=== PATIENT | male | born 1945 | race Caucasian/White ===

== ENCOUNTER → 2017-09-04 12:08 | Outpatient (CLI) | payer OTHER, SELFPAY ==
--- NOTE | 2017-09-04 12:11 | DI.RAD.S_ITS ---
PROCEDURE: XR KNEE LT 3V INDICATIONS: left knee pain TECHNIQUE: 3 views of the knee were acquired. COMPARISON: [facility], , KNEE 3V LEFT, 05/06/2013, 11:01. FINDINGS: Bones: Mild interval worsening of degenerative knee joint osteoarthritis that has now become moderately severe at the medial compartment of the left knee. This is in reference to the comparison study from April 2013. No effusion or loose body seen. Mild medial facet patellofemoral joint osteoarthritis. Soft tissues: No joint effusion. No suspicious soft tissue calcifications. IMPRESSION: Worsening degenerative knee joint osteoarthritis now moderately severe the medial compartment of the left knee when compared to the prior study from 2013. Dictated by: Rodney Valdez M.D. on 09/04/2017 at 12:59 Approved by: Rodney Valdez M.D. on 09/04/2017 at 13:00
== END ==
PROVIDERS: PCP Family Medicine; Visit Provider Internal Medicine
DX: M17.12 Unilateral primary osteoarthritis, left knee (principal); M25.562 Pain in left knee; M25.561 Pain in right knee
CPT/HCPCS: 73562

== ENCOUNTER → 2018-06-03 13:08 | Outpatient (CLI) | payer OTHER, SELFPAY ==
--- NOTE | 2018-06-03 13:10 | DI.US.S_ITS ---
PROCEDURE: US ABD AORTA ANEURYSM SCREEN INDICATIONS: Former smoker TECHNIQUE: Real time scanning was performed of the aorta and iliac arteries, with image documentation. COMPARISON: None. FINDINGS: Aorta: Proximal aortic was obscured by bowel gas. Mid-aorta measures 2.1 cm. Distal aortic diameter is 2.0 cm. There appears to be aortic atherosclerosis. Iliac arteries: Right common iliac artery measures 1.7 cm. Left common iliac artery measures 1.7 cm. IMPRESSION: No evidence of abdominal aortic aneurysm. Dictated by: Ariel Simons M.D. on 06/03/2018 at 13:09 Approved by: Ariel Simons M.D. on 06/03/2018 at 13:13
== END ==
PROVIDERS: PCP Student in an Organized Health Care Education/Training Program; Visit Provider Student in an Organized Health Care Education/Training Program
DX: Z13.6 Encounter for screening for cardiovascular disorders (principal); Z87.891 Personal history of nicotine dependence
CPT/HCPCS: 76706

== ENCOUNTER → 2018-08-29 09:21 | Outpatient (CLI) | payer OTHER, SELFPAY ==
[2018-08-29 12:47] LABS: Blood Urea Nitrogen 19 mg/dL (9-20); Calcium 9.2 mg/dL (8.4-10.2); Carbon Dioxide 26 mmol/L (22-32); Chloride 103 mmol/L (98-107); Cholesterol 174 mg/dL (140-199); Estimated Glomerular Filt Rate > 60.0 mL/min (>60); Glucose 92 mg/dL (80-110); HDL Cholesterol 28 mg/dL (40-60); HEMOLYSIS < 15 (0-50); LDL Cholesterol Calculated 119 mg/dL (<100); Potassium 4.6 mmol/L (3.4-5.1); Sodium 138 mmol/L (137-145); Triglycerides 135 mg/dL (35-150)
[2018-08-29 14:49] LABS: Vitamin D 25 Hydroxy (D3) 32.9 ng/mL (30.0-100.0)
== END ==
PROVIDERS: PCP Student in an Organized Health Care Education/Training Program; Visit Provider Student in an Organized Health Care Education/Training Program
DX: E55.9 Vitamin D deficiency, unspecified (principal); I10 Essential (primary) hypertension; Z13.220 Encounter for screening for lipoid disorders
CPT/HCPCS: 36415; 80048; 80061; 82306

== ENCOUNTER 2018-12-06 08:32 | Emergency (ER) | payer OTHER, SELFPAY ==
[2018-12-06 08:54] VITALS: BP 146/72; PULSE 82; RESP 13; TEMP 36.4; O2SAT 98
--- NOTE | 2018-12-06 08:56 | DI.RAD.S_ITS ---
PROCEDURE: XR LUMBAR SPINE 2-3V INDICATIONS: pain TECHNIQUE: 3 views of the lumbar spine were acquired. COMPARISON: [facility], , L-SPINE 2-3 VIEWS, 05/06/2013, 11:01. FINDINGS: Bones: 5 znt-nak-nzutuiz vertebrae are present. There is normal bony alignment. No vertebral body compression fractures. No suspicious bony lesions. The bone mineralization appears to be mildly decreased. There is slight levoconvex curvature of the lumbar spine which may be slightly more prominent on the current study. Moderate multilevel degenerative changes of the lumbar spine are similar to the previous examination, but slightly more pronounced and better appreciated involving the lower lumbar facet joints. Intervertebral disc heights are relatively well-maintained. Anterior disc osteophyte complexes are present. Is grade 1 retrolisthesis of L2 on L3 and L3 on L4 by approximately 3 mm. Degenerative changes of the sacroiliac joints appear to be present. Soft tissues: Overlying bowel gas pattern is normal. A large amount of stool is seen within the colon. There is aortic atherosclerosis. No suspicious soft tissue calcifications. IMPRESSION: 1. No acute fractures of the lumbar spine are evident. 2. Moderate multilevel degenerative changes of the lumbar spine have progressed in the interim. 3. Moderate residual stool within the colon may represent constipation. Dictated by: Ariel Simons M.D. on 12/06/2018 at 8:17 Approved by: Ariel Simons M.D. on 12/06/2018 at 8:19
--- NOTE | 2018-12-06 08:58 | ED.BACK ---
HPI - Back Pain/Injury General Chief Complaint: Back Pain/Injury Stated Complaint: Lower back pain Time Seen by Provider: 12/06/18 08:56 Source: patient Mode of arrival: ambulatory Limitations: no limitations History of Present Illness HPI Narrative: Patient is a 73-year-old male who presents with back pain. He states that he was crawling around underneath his house trying to fix that inflation. He also needed to do some stapling. This has been ongoing for about a week. He has had of progressive lower back pain. No radiation to his legs no numbness or tingling. He denies any fall. He also states about this morning 630 he had some sharp right lower quadrant pain. He called the [facility] from an intake nurse who recommended he come to the ED. He says now he no longer has right lower quadrant pain. He denies any right flank pain radiating to his right lower quadrant. Related Data Home Medications Medication Instructions Recorded Confirmed aspirin 81 mg PO QPM #0 12/20/10 09/16/18 Previous Rx's Medication Instructions Recorded cpnfyizhle-zbrznjdcnw-dgw-cod 1 cap PO QDAY #60 cap 03/15/17 amlodipine 5 mg tablet 5 mg PO DAILY #90 tab 06/20/18 metoprolol tartrate 50 mg tablet 50 mg PO BID #180 tab 06/20/18 losartan 100 mg tablet 100 mg PO DAILY #90 tab 06/24/18 tamsulosin 0.4 mg capsule 0.4 mg PO QDAY #90 tab 08/05/18 lovastatin 20 mg tablet 20 mg PO QPM #90 tab 09/16/18 ciprofloxacin HCl [Cipro] 500 mg PO BID #14 tab 12/06/18 Allergies Allergy/AdvReac Type Severity Reaction Status Date / Time hydrocodone [HYDROCODONE] AdvReac Mild VOMITING Verified 12/06/18 08:57 oxycodone [From OXYCONTIN] AdvReac Unknown vomiting Verified 12/06/18 08:57 Review of Systems Review of Systems ROS Unobtainable: All systems reviewed & are unremarkable except as noted in HPI and below Constitutional Denies chills, Denies fever(s), Denies lethargy and Denies weakness Eyes Denies change in vision, Denies eye discharge, Denies irritation and Denies loss of vision ENT Ears, Nose, Mouth, and Throat: Denies change in voice, Denies neck pain and Denies sore throat Cardiovascular Denies chest pain, Denies irregular heart rhythm, Denies lightheadedness, Denies palpitations, Denies dyspnea, Denies dyspnea on exertion and Denies orthopnea Respiratory Denies cough, Denies dyspnea, Denies dyspnea on exertion and Denies wheezing Gastrointestinal Gastrointestinal: Reports abdominal pain (RLQ pain now gone), Denies change in bowel habits, Denies diarrhea, Denies nausea and Denies vomiting Musculoskeletal Reports as per HPI and Denies neck pain Integumentary/Breasts Denies pruritus, Denies erythema, Denies rash and Denies wounds Neurologic Denies loss of vision and Denies weakness Endocrine Denies palpitations Allergic/Immunologic Denies wheezing [facility] Medical History Chronic headaches (Chronic) Hyperlipidemia (Chronic) Hypertension (Chronic) Left inguinal hernia (Chronic) Migraines (Chronic) Colon polyps (Resolved) Facial tic (Resolved) Surgical History History of neurologic surgery (Resolved) Status post colonoscopy (Resolved 12/08/10) Family History (Updated 12/06/17 @ 14:03 by Christy Small) Father Coronary artery disease Mother Stroke Family/Other Colorectal cancer Family/Other Prostate cancer Other Hypertension Social History Smoking Status: Former smoker Family History Father Coronary artery disease Mother Stroke Family/Other Colorectal cancer Family/Other Prostate cancer Other Hypertension Social History Smoking Status: Former smoker Exam Initial Vital Signs Initial Vital Signs: Vital Signs Temperature 97.6 F 12/06/18 08:54 Pulse Rate 82 12/06/18 08:54 Respiratory Rate 13 12/06/18 08:54 Blood Pressure 146/72 H 12/06/18 08:54 Pulse Oximetry 98 12/06/18 08:54 GENERAL: Well-appearing, well-nourished and in no acute distress. HEENT: Head atraumatic,EOMI, pupils reactive, face symmetric, moist mucous membranes CARDIOVASCULAR: Regular rate and rhythm without murmurs, rubs or gallops. RESPIRATORY: Breath sounds equal bilaterally, no wheezes rales or rhonchi. ABDOMEN: Soft, nontender. No right lower quadrant pain. Normoactive bowel sounds all 4 quadrants. No guarding or rebound. BACK: Midline lower tenderness no step-offs. Bilateral lumbar pain as well. No contusion or erythema no sign of trauma. : No CVA tenderness EXTREMITIES: Normal range of motion, no clubbing or edema. Neurovascularly intact NEUROLOGICAL: Alert and oriented x4.Normal gait and speech. Cranial nerves II through XII grossly intact. SKIN: Warm, dry, no laceration, no petechiae, no rashes or lesions. Course Orders Ordered: ED Orders 12/06/18 08:56 XR lumbar spine 2-3V Stat 12/06/18 10:30 Urine Culture Stat Urine Microscopic Stat Discontinued Medications Ketorolac Tromethamine (Toradol) 30 mg IM NOW ONE Stop: 12/06/18 08:57 Last Admin: 12/06/18 09:06 Dose: 30 mg Vital Signs - 8 hr 12/06/18 08:54 12/06/18 10:44 12/06/18 11:04 Temperature 97.6 F Pulse Rate 82 61 58 L Respiratory Rate 13 16 16 Blood Pressure 146/72 H Blood Pressure [Left Arm] 104/64 113/65 Pulse Oximetry 98 97 96 MDM - Back Pain/Injury Lab Data Attestation: I reviewed the patient's lab results. Lab Results 12/06/18 Range/Units 10:30 Urine RBC 1-5/hpf (0-5/HPF) Urine WBC 1-5/hpf (0-5/HPF) Urine Bacteria None seen (None) Hyaline Casts 10-30/lpf (None) Urine Mucus 2+ H (Negative) Ur Culture Indicated? Specimen cultured Urine Dip Bedside Urine Bilirubin + 1 Bedside Urine Ketone +/- 5 Urine Specific [place] 1.025 Bedside Urine Occult Blood - Negative Bedside Urine pH 6.0 Bedside Urine Protein + 30 Bedside Urine Urobilinogen +/- 1mg Bedside Urine Nitrite - Negative Bedside Urine Leukocytes +/- 15 Esterase Imaging Data lumbar: Radiologist's impression: PROCEDURE: XR LUMBAR SPINE 2-3V INDICATIONS: pain TECHNIQUE: 3 views of the lumbar spine were acquired. COMPARISON: [facility], , -SPINE 2-3 VIEWS, 05/06/2013, 11:01. FINDINGS: Bones: 5 nlh-fhq-rucwoxc vertebrae are present. There is normal bony alignment. No vertebral body compression fractures. No suspicious bony lesions. The bone mineralization appears to be mildly decreased. There is slight levoconvex curvature of the lumbar spine which may be slightly more prominent on the current study. Moderate multilevel degenerative changes of the lumbar spine are similar to the previous examination, but slightly more pronounced and better appreciated involving the lower lumbar facet joints. Intervertebral disc heights are relatively well-maintained. Anterior disc osteophyte complexes are present. Is grade 1 retrolisthesis of L2 on L3 and L3 on L4 by approximately 3 mm. Degenerative changes of the sacroiliac joints appear to be present. Soft tissues: Overlying bowel gas pattern is normal. A large amount of stool is seen within the colon. There is aortic atherosclerosis. No suspicious soft tissue calcifications. IMPRESSION: 1. No acute fractures of the lumbar spine are evident. 2. Moderate multilevel degenerative changes of the lumbar spine have progressed in the interim. 3. Moderate residual stool within the colon may represent constipation. Dictated by: Ariel Simons M.D. on 12/06/2018 at 8:17 MDM Narrative Medical decision making narrative: The patient does not actually have flank pain he has has no blood in his urine. He does have some frequent urination but unknown prostate issues. Will treat him for UTI. His his abdominal pain never returned I over repeated his abdominal exam few times on the emergency department it remains soft and nontender. At this time I do not think any further abdominal imaging is indicated. I do not suspect appendicitis is or kidney stone other intra-abdominal abnormalities. Discharge Plan Departure Patient Disposition: Home Clinical Impression: Acute UTI Back pain Qualifiers: Back pain location: low back pain Chronicity: acute Back pain laterality: bilateral Sciatica presence: without sciatica Qualified Code(s): M54.5 - Low back pain Discharge Date/Time: 12/06/18 11:04 Interventions: ED Discharge Assessment Last Done: 12/06/18 11:03 Instructions: DI for Urinary Tract Infection (UTI), DI for Back Strain or Sprain Activity Restrictions/Additional Instructions: *You have been diagnosed with back pain and UTI *What to do: At this time x-ray is negative. *Continue to take medications as directed Cipro 500 mg twice a day for 7 days Tylenol 650 mg every 4-6 hours if needed for pain Ibuprofen/Motrin 600 mg every 8 hours if needed for pain *Follow up with your primary care provider in 2-3 days *Return to ER if you should have increasing back pain, abdominal pain, persistent vomiting or any new, worsening or concerning symptoms Prescriptions: New ciprofloxacin HCl [Cipro] 500 mg tablet 500 mg PO BID Qty: 14 RF: 0 No Action aspirin 81 MG tablet,delayed release (DR/EC) 81 mg PO QPM Qty: 0 RF: 0 dkrbqkgcxp-iyumkzggdh-ugu-cod 1 EACH capsule 1 cap PO QDAY Qty: 60 RF: 1 amlodipine 5 mg tablet 5 mg PO DAILY Qty: 90 RF: 7 metoprolol tartrate 50 mg tablet 50 mg PO BID Qty: 180 RF: 3 losartan 100 mg tablet 100 mg PO DAILY Qty: 90 RF: 3 tamsulosin [Flomax] 0.4 mg capsule 0.4 mg PO QDAY Qty: 90 RF: 3 lovastatin 20 mg tablet 20 mg PO QPM Qty: 90 RF: 1 Referrals: Robert Moise MD [Primary Care Provider] -
[2018-12-06] MEDS: KETOROLAC 60 MG/2 ML VIAL 30 MG IM (09:06)
[2018-12-06 10:37] LABS: Bacteria Urine None Seen
[2018-12-06 10:44] VITALS: BP 104/64; PULSE 61; RESP 16; O2SAT 97
[2018-12-06 10:48] LABS: Culture Indicated Urine Specimen Cultured; Hyaline Casts Urine 10-30/LPF; Mucus Urine 2+ (Negative); RBC Urine 1-5/HPF (0-5/HPF); WBC Urine 1-5/HPF (0-5/HPF)
[2018-12-06 11:04] VITALS: BP 113/65; PULSE 58; RESP 16; O2SAT 96
== END 2018-12-06 11:04 | disposition home or self-care (01) ==
PROVIDERS: Emergency Provider Emergency Medicine; PCP Student in an Organized Health Care Education/Training Program
DX: N39.0 Urinary tract infection, site not specified (principal); M54.5 Low back pain
CPT/HCPCS: 72100; 81003; 81015; 87077; 87086; 87186; 96372; 99282; 99283; J1885

== ENCOUNTER → 2019-02-24 09:44 | Outpatient (CLI) | payer OTHER, SELFPAY ==
[2019-02-24 10:49] LABS: Alanine Aminotransferase 14 IU/L (<50); Albumin 4.1 g/dL (3.5-5.0); Alkaline Phosphatase 60 U/L (38-126); Aspartate Aminotransferase 21 IU/L (17-59); Bilirubin Total 0.9 mg/dL (0.2-1.3); Bilirubin Unconjugated 0.7 mg/dL (0.0-1.1); Cholesterol 142 mg/dL (140-199); Globulin 4.3 g/dL (1.7-4.1); HDL Cholesterol 30 mg/dL (40-60); HEMOLYSIS < 15 (0-50); LDL Cholesterol Calculated 98 mg/dL (<100); Total Protein 8.4 g/dL (6.3-8.2); Triglycerides 70 mg/dL (35-150)
== END ==
PROVIDERS: PCP Student in an Organized Health Care Education/Training Program; Visit Provider Student in an Organized Health Care Education/Training Program
DX: E78.5 Hyperlipidemia, unspecified (principal); Z79.899 Other long term (current) drug therapy
CPT/HCPCS: 36415; 80061; 80076

== ENCOUNTER 2019-03-31 09:12 | Emergency (ER) | payer OTHER, SELFPAY ==
[2019-03-31 09:33] VITALS: BP 137/80; PULSE 95; RESP 13; TEMP 36.6; O2SAT 100
--- NOTE | 2019-03-31 09:40 | ED.SKABFB ---
HPI - Skin/Abscess/Foreign Bdy General Chief complaint: Upper Respiratory Symptoms Stated complaint: 'a pill' stuck in throat Time Seen by Provider: 03/31/19 09:12 Source: patient Mode of arrival: Ambulatory Limitations: no limitations History of Present Illness HPI narrative: 73-year-old male former smoker with history of hypertension and hyperlipidemia presents with a chief complaint of discomfort in his throat that started yesterday after taking his medications. He can still eat and drink but feels a fullness in his throat. He denies any history of the same. He did have a fever yesterday but no longer today. He denies any runny nose, chest pain or shortness of breath. Related Data Home Medications Medication Instructions Recorded Confirmed aspirin 81 mg PO QPM #0 12/20/10 02/27/19 Previous Rx's Medication Instructions Recorded ujpphiicux-kfeolbpsoa-jvu-cod 1 cap PO QDAY #60 cap 03/15/17 amlodipine 5 mg tablet 5 mg PO DAILY #90 tab 06/20/18 metoprolol tartrate 50 mg tablet 50 mg PO BID #180 tab 06/20/18 losartan 100 mg tablet 100 mg PO DAILY #90 tab 06/24/18 tamsulosin 0.4 mg capsule 0.4 mg PO QDAY #90 tab 08/05/18 lovastatin 20 mg tablet 20 mg PO QPM #90 tab 03/25/19 Allergies Allergy/AdvReac Type Severity Reaction Status Date / Time hydrocodone [HYDROCODONE] AdvReac Mild VOMITING Verified 02/27/19 10:50 oxycodone [From OXYCONTIN] AdvReac Unknown vomiting Verified 02/27/19 10:50 Review of Systems Constitutional Constitutional: Denies chills, Denies fatigue, Denies fever(s), Denies frequent falls, Denies lethargy and Denies weakness Eyes Eyes: Denies change in vision, Denies eye discharge, Denies irritation and Denies loss of vision ENT Ears, Nose, Mouth, and Throat: Denies change in voice, Denies dizziness, Denies neck pain, Reports sore throat and Denies throat swelling Cardiovascular Cardiovascular: Denies chest pain, Denies irregular heart rhythm, Denies lightheadedness, Denies palpitations, Denies dyspnea, Denies dyspnea on exertion and Denies orthopnea Respiratory Respiratory: Denies cough, Denies dyspnea, Denies dyspnea on exertion and Denies wheezing Gastrointestinal Gastrointestinal: Denies abdominal pain, Denies change in bowel habits, Denies diarrhea, Denies nausea and Denies vomiting Genitourinary Genitourinary: Denies hematuria, Denies flank pain, Denies urinary incontinence and Denies urinary urgency Musculoskeletal Musculoskeletal: Denies back pain, Denies muscle weakness, Denies neck pain, Denies numbness and Denies tingling Integumentary/Breasts Skin/Breast: Denies pruritus, Denies erythema, Denies rash and Denies wounds Neurologic Neurologic: Denies behavioral changes, Denies confusion, Denies dizziness, Denies frequent falls, Denies loss of vision, Denies numbness, Denies tingling and Denies weakness Psychiatric Psychiatric: Denies anxiety, Denies behavioral changes, Denies confusion, Denies depression, Denies homicidal ideation and Denies suicidal ideation Endocrine Endocrine: Denies fatigue, Denies flushing and Denies palpitations Hematologic/Lymphatic Hematologic/Lymphatic: Denies easy bruising Allergic/Immunologic Allergic/Immunologic: Denies urticaria, Denies throat swelling and Denies wheezing Patient History Medical History Chronic headaches (Chronic) Colon polyps (Resolved) Facial tic (Resolved) Hyperlipidemia (Chronic) Hypertension (Chronic) Left inguinal hernia (Chronic) Migraines (Chronic) Surgical History History of neurologic surgery (Resolved) Status post colonoscopy (Resolved 12/08/10) Family History Father Coronary artery disease Mother Stroke Family/Other Colorectal cancer Family/Other Prostate cancer Other Hypertension Social History Smoking Status: Former smoker Smoking Status: Former smoker Exam Narrative Exam Narrative: GENERAL: [73] year old patient appears stated age. Well-nourished, well-developed patient, in mild distress. Managing secretions HEAD: Atraumatic. Normocephalic. EYES: Pupils equal round and reactive. Extraocular motions intact. No scleral icterus. No injection or drainage. ENT: Nose without bleeding, purulent drainage. Throat without erythema, large obstructive mass in the left peritonsillar region though it is not classically a peritonsillar abscess in appearance NECK: Trachea midline. Non tender CARDIOVASCULAR: Regular rate and rhythm without murmurs, gallops, or rubs. RESPIRATORY: Clear to auscultation. Breath sounds equal bilaterally. No wheezes, rales, or rhonchi. GASTROINTESTINAL: Abdomen soft, non-tender, nondistended. EXTREMITIES: No edema or joint tenderness. BACK: Nontender without deformity or crepitance. No flank tenderness. NEURO: AOx3. SKIN: No rash or erythema of visible areas Initial Vital Signs Initial Vital Signs: Vital Signs Temperature 97.9 F 03/31/19 09:33 Pulse Rate 95 H 03/31/19 09:33 Respiratory Rate 13 03/31/19 09:33 Blood Pressure 137/80 03/31/19 09:33 Pulse Oximetry 100 03/31/19 09:33 Course Course Course Narrative: Soon after arrival of this patient contacted the on-call orthopedic physical therapist to request a prompt evaluation. We discussed administration of IV Decadron and some basic labs and then he would see the patient this morning in the office. Orders Ordered: ED Orders 03/31/19 09:10 Strep Grp A by PCR Rapid Stat 03/31/19 10:25 Basic Metabolic Panel Stat Complete Blood Count AUTO DIFF Stat Discontinued Medications Dexamethasone 20 mg/ Sodium (Chloride) 52 mls @ 208 mls/hr IV NOW ONE Stop: 03/31/19 09:44 Last Infusion: 03/31/19 10:12 Dose: 0 mls/hr Documented by: [email or web address] Admin: 03/31/19 09:59 Dose: 208 mls/hr Documented by: THOR Vital Signs Vital signs: Vital Signs - 8 hr 03/31/19 09:33 03/31/19 10:14 Temperature 97.9 F Pulse Rate 95 H 101 H Respiratory Rate 13 18 Blood Pressure 137/80 Blood Pressure [Right Arm] 123/85 Pulse Oximetry 100 95 MDM - Skin/Abscess/Foreign Bdy Lab Data Result diagrams: 03/31/19 10:25 03/31/19 10:25 Labs: Lab Results 03/31/19 03/31/19 03/31/19 Range/Units 09:10 10:25 10:25 WBC 8.5 (4.5-11.0) X10^3/uL RBC 3.80 L (4.5-5.9) X10^6/uL Hgb 13.0 L (13.5-17.5) g/dL Hct 38.1 L (41-53) % MCV 100.4 H (80-100) fL MCH 34.2 H (26-34) PG MCHC 34.1 (30-36) % RDW 13.3 (11.6-14.8) % Plt Count 161 (150-400) X10^3/uL Neut % (Auto) 81.2 H (50-75) % Lymph % (Auto) 8.5 L (25-40) % [place] % (Auto) 9.8 (3-14) % Eos % (Auto) 0.1 L (2-4) % Baso % (Auto) 0.4 (0-2) % Neut # (Auto) 6900 (6450-5260) /uL Lymph # (Auto) 700 L (9803-9279) /uL [place] # (Auto) 800 (0-900) /uL Eos # (Auto) 0 (0-450) /uL Baso # (Auto) 0 (0-100) /uL Sodium 139 (137-145) mmol/L Potassium 4.3 (3.4-5.1) mmol/L Chloride 104 (98-107) mmol/L Carbon Dioxide 27 (22-32) mmol/L BUN 17 (9-20) mg/dL Creatinine 1.10 (0.66-1.25) mg/dL Estimated GFR > 60.0 (>60) mL/min BUN/Creatinine Ratio 15.5 (6-22) Glucose 112 H (80-110) mg/dL Calcium 9.2 (8.4-10.2) mg/dL Group A Strep (PCR) Negative Discharge Plan Departure Patient Disposition: Home Clinical Impression: Throat fullness Discharge Date/Time: 03/31/19 10:50 Instructions: DI for Esophagitis Activity Restrictions/Additional Instructions: *You have been diagnosed with [swelling and fullness in posterior pharynx. I spoken with Dr. Holder at [facility] and he wants to see you today, please present directly from the emergency department to their office as they are expecting you. We left your IV in place in case they decide to take steps that will require the use of an IV] Prescriptions: No Action aspirin 81 MG tablet,delayed release (DR/EC) 81 mg PO QPM Qty: 0 RF: 0 edggjqrste-pefakcqdcy-nef-cod 1 EACH capsule 1 cap PO QDAY Qty: 60 RF: 1 amlodipine 5 mg tablet 5 mg PO DAILY Qty: 90 RF: 7 metoprolol tartrate 50 mg tablet 50 mg PO BID Qty: 180 RF: 3 losartan 100 mg tablet 100 mg PO DAILY Qty: 90 RF: 3 tamsulosin [Flomax] 0.4 mg capsule 0.4 mg PO QDAY Qty: 90 RF: 3 lovastatin 20 mg tablet 20 mg PO QPM Qty: 90 RF: 3 Referrals: Robert Moise MD [Primary Care Provider] - William Holder MD [Physician] -
[2019-03-31] MEDS: dexAMETHasone 20 MG in SODIUM CHLORIDE 0.9% 50 ML 208 ML IV (09:59)
[2019-03-31 10:05] LABS: Strep Grp A by PCR Rapid Negative
[2019-03-31 10:14] VITALS: BP 123/85; PULSE 101; RESP 18; O2SAT 95
--- NOTE | 2019-03-31 10:14 | PC.NURSE ---
nad, admits able to drink and eat, no drooling , clear speech.
[2019-03-31 10:32] LABS: Add Manual Diff / Slide Review NO; Basophils Absolute Auto 0 /uL (0-100); Basophils Percent Auto 0.4 % (0-2); Eosinophils Absolute Auto 0 /uL (0-450); Eosinophils Percent Auto 0.1 % (2-4); Hematocrit 38.1 % (41-53); Lymphocytes Absolute Auto 700 /uL (1100-4500); Lymphocytes Percent Auto 8.5 % (25-40); Mean Corpuscular HGB Conc 34.1 % (30-36); Mean Corpuscular Hemoglobin 34.2 PG (26-34); Mean Corpuscular Volume 100.4 fL (80-100); Monocytes Absolute Auto 800 /uL (0-900); Monocytes Percent Auto 9.8 % (3-14); Neutrophils Absolute Auto 6900 /uL (1500-7000); Neutrophils Percent Auto 81.2 % (50-75); Platelet Count 161 X10^3/uL (150-400); Red Cell Distribution Width 13.3 % (11.6-14.8); White Blood Cell Count 8.5 X10^3/uL (4.5-11.0)
[2019-03-31 10:47] LABS: BUN Creatinine Ratio 15.5 (6-22); Blood Urea Nitrogen 17 mg/dL (9-20); Calcium 9.2 mg/dL (8.4-10.2); Carbon Dioxide 27 mmol/L (22-32); Chloride 104 mmol/L (98-107); Estimated Glomerular Filt Rate > 60.0 mL/min (>60); Glucose 112 mg/dL (80-110); HEMOLYSIS < 15 (0-50); Potassium 4.3 mmol/L (3.4-5.1); Sodium 139 mmol/L (137-145)
== END 2019-03-31 10:50 | disposition home or self-care (01) ==
PROVIDERS: Emergency Provider Emergency Medicine; PCP Student in an Organized Health Care Education/Training Program
DX: K20.9 Esophagitis, unspecified (principal)
CPT/HCPCS: 36415; 80048; 85025; 87651; 99283; 99284; J1100

== ENCOUNTER → 2020-02-05 15:01 | Outpatient (CLI) | payer MEDICARE, SELFPAY ==
[2020-02-05 16:04] LABS: Alanine Aminotransferase 15 IU/L (<50); Albumin 3.9 g/dL (3.5-5.0); Albumin Globulin Ratio 0.8 (1.0-2.8); Alkaline Phosphatase 69 U/L (38-126); Aspartate Aminotransferase 22 IU/L (17-59); BUN Creatinine Ratio 25.5 (6-22); Bilirubin Total 0.6 mg/dL (0.2-1.3); Blood Urea Nitrogen 25 mg/dL (9-20); Calcium 9.3 mg/dL (8.4-10.2); Carbon Dioxide 30 mmol/L (22-32); Chloride 105 mmol/L (98-107); Estimated Glomerular Filt Rate > 60.0 mL/min (>60); Globulin 4.7 g/dL (1.7-4.1); Glucose 105 mg/dL (80-110); HEMOLYSIS < 15 (0-50); Potassium 4.2 mmol/L (3.4-5.1); Sodium 139 mmol/L (137-145); Total Protein 8.6 g/dL (6.3-8.2)
== END ==
PROVIDERS: PCP Student in an Organized Health Care Education/Training Program; Referring Provider Student in an Organized Health Care Education/Training Program; Visit Provider Student in an Organized Health Care Education/Training Program
DX: I10 Essential (primary) hypertension (principal); R77.1 Abnormality of globulin
CPT/HCPCS: 36415; 80053

== ENCOUNTER → 2020-02-08 13:25 | Outpatient (CLI) | payer MEDICARE, SELFPAY ==
[2020-02-10 21:55] LABS: Albumin 3.4 g/dL (2.9-4.4); Alpha 1 Globulin 0.2 g/dL (0.0-0.4); Alpha 2 Globulin 0.6 g/dL (0.4-1.0); Beta 1 Globulin 0.8 g/dL (0.7-1.3); Gamma Globulin 2.3 g/dL (0.4-1.8); Immunoglobulin A 27 mg/dL (61-437); Immunoglobulin G 3026 mg/dL (603-1613); Immunoglobulin M 15 mg/dL (15-143); Protein, Total 7.4 g/dL (6.0-8.5)
== END ==
PROVIDERS: PCP Student in an Organized Health Care Education/Training Program; Referring Provider Student in an Organized Health Care Education/Training Program; Visit Provider Student in an Organized Health Care Education/Training Program
DX: D89.2 Hypergammaglobulinemia, unspecified (principal)
CPT/HCPCS: 36415; 84155; 84165

== ENCOUNTER 2020-05-26 15:23 | Emergency (ER) | payer MEDICARE, SELFPAY ==
[2020-05-26 15:27] VITALS: BP 128/70; PULSE 85; RESP 14; TEMP 36.9; O2SAT 96; BMI 29.9
--- NOTE | 2020-05-26 15:30 | PC.NURSE ---
left hand 2nd and 3rd fingers tips. bleeding controlled, covered with 4x4 and wrapped with coban.
--- NOTE | 2020-05-26 17:03 | ED.WOUNDLAC ---
HPI - Wound/Laceration General Chief Complaint: Wound/Laceration Stated Complaint: left 2nd & 3rd finger cuts Time Seen by Provider: 05/26/20 17:03 Source: patient Mode of arrival: Ambulatory Limitations: no limitations History of Present Illness HPI narrative: This is a 74-year-old male who comes to the emergency department with complaint of injury to the 2nd and 3rd fingers of his left hand. Patient was using a table saw was pushing for piece of wood when it bounced back. Patient has some pain at the site but otherwise denies other injury. No other loss of sensation. Patient denies other issues. He has anything for pain. His tetanus is up today. Patient has hypertension, dyslipidemia history takes aspirin daily. He states his last tetanus was 8 years ago. He denies any allergies to antibiotics Related Data Home Medications Medication Instructions Recorded Confirmed aspirin 81 mg PO QPM #0 12/20/10 02/05/20 Previous Rx's Medication Instructions Recorded triamcinolone acetonide 0.5 % 1 applictn TOP DAILY #15 gram 02/05/20 topical cream amlodipine 5 mg tablet 5 mg PO DAILY #90 tab 04/13/20 lovastatin 20 mg tablet 20 mg PO QPM #90 tab 04/13/20 tamsulosin 0.4 mg capsule 0.4 mg PO QDAY #90 tab 04/13/20 losartan 100 mg tablet 100 mg PO DAILY #90 tab 05/02/20 cephalexin [Keflex] 500 mg PO QID #40 cap 05/26/20 Allergies Allergy/AdvReac Type Severity Reaction Status Date / Time hydrocodone [HYDROCODONE] AdvReac Mild VOMITING Verified 05/26/20 15:26 oxycodone [From OXYCONTIN] AdvReac Unknown vomiting Verified 05/26/20 15:26 Review of Systems Review of Systems ROS Unobtainable: All systems reviewed & are unremarkable except as noted in HPI and below Patient History Medical History (Updated 05/26/20 @ 17:37 by Freya Walker DO) Chronic headaches Colon polyps Facial tic Hyperlipidemia Hypertension Left inguinal hernia Migraines Surgical History History of neurologic surgery Status post colonoscopy (12/08/10) Family History Father Coronary artery disease Mother Stroke Family/Other Colorectal cancer Family/Other Prostate cancer Other Hypertension Social History Smoking Status: Former smoker Smoking Status: Former smoker Substance Use Type: does not use Exam Narrative Exam Narrative: GENERAL: Alert and oriented x three, well-nourished, well-appearing male in mild distress. HEENT: Head normocephalic, atraumatic, EOMI, pupils reactive, face symmetric, moist mucous membranes NECK: Supple, full range of motion CARDIOVASCULAR: Regular rate and rhythm without murmurs, rubs or gallops. RESPIRATORY: Breath sounds equal bilaterally, no wheezes rales or rhonchi. EXTREMITIES: Normal range of motion, no clubbing or edema. Patient has an avulsion of the distal lateral edge of the tip of the 2nd and 3rd fingers on the left hand. There is a small amount of nail involved with removal but the rest of the nail is intact. Unable to visualize any bone but there is subcutaneous tissue exposed. Patient does not have enough tissue present to close the area. NEUROLOGICAL: Cranial nerves II through XII grossly intact. Moving all extremities SKIN: Warm, dry, no petechiae, no rashes or lesions other than noted. Initial Vital Signs Initial Vital Signs: Vital Signs Temperature 98.5 F 05/26/20 15:27 Pulse Rate 85 05/26/20 15:27 Respiratory Rate 14 05/26/20 15:27 Blood Pressure 128/70 05/26/20 15:27 Pulse Oximetry 96 05/26/20 15:27 Course Orders Ordered: ED Orders 05/26/20 17:17 XR hand LT min 3V Stat Discontinued Medications Cephalexin HCl (Cephalexin 250 Mg Capsule) 500 mg PO NOW ONE Stop: 05/26/20 17:18 Last Admin: 05/26/20 17:31 Dose: 500 mg Documented by: SARAH BETH Diphtheria/Tetanus/Acell Pertussis (Tet,Diph,Pertuss(Acell),Vac/Pf 0.5 Ml Syringe) 0.5 ml IM .ONCE ONE Stop: 05/26/20 17:18 Last Admin: 05/26/20 17:32 Dose: 0.5 ml Documented by: SARAH BETH Vital Signs Vital signs: Vital Signs - 8 hr 05/26/20 15:27 05/26/20 18:06 Temperature 98.5 F Pulse Rate 85 76 Respiratory Rate 14 20 Blood Pressure 128/70 135/75 Pulse Oximetry 96 100 MDM - Wound/Laceration Imaging Data Extremity x-ray #1: Radiologist's Impression: [address] [id number] ReportSigned Patient: Mukund Parry MMR#: [id number]: 4Acct:[id number]/Sex: 74 / MDate of Service: 05/26/20Loc: EDAccession Number: [id number] Procedure: XR hand LT min 3V Ordering Provider: Freya Walker D.O. PROCEDURE: XR HAND LT MIN 3V INDICATIONS: 2/3rd finger, very tip of finger avulsion with table saw. TECHNIQUE: Three views of the hand(s) acquired. COMPARISON: None. FINDINGS: Bones: No fractures or dislocations. There is joint space loss at the 2nd through 5th distal interphalangeal joints, particularly severe at the 5th where there is mild osseous remodeling and spurring. Questionable periarticular erosive change along the medial aspect of the 3rd and 4th proximal phalanx base. Possible periarticular lucencies along the medial and lateral aspects of the proximal and middle phalanges two through five. Carpal bones are normally aligned. No suspicious bony lesions. Soft tissues: Small soft tissue defects off the tip of the 2nd and 3rd digit are seen. No radiodense foreign bodies in the tissues. No suspicious soft tissue calcifications. IMPRESSION: 1. Soft tissue injury to the distal 2nd and 3rd digit without underlying foreign body or fracture. 2. Osteoarthritic changes. 3. Possible periarticular erosive changes raising the possibility of inflammatory arthritis. Dictated by: Lesli Davison M.D. on 05/26/2020 at 17:38 Approved by: Lesli Davison M.D. on 05/26/2020 at 17:41 [facility] Narrative Medical decision making narrative: 74-year-old male comes with avulsion injury from band saw. There was not really enough tissue to close it, it is fairly superficial and will likely close or heal well over the next several weeks by secondary intention. There is some mild nail involvement at the very distal end but actually appears quite clean and I would not remove or adjust the nail. Plan to place patient on Keflex, wound care and follow-up with either primary care or orthopedic surgery but worse patient's presence. Discharge Plan Departure Patient Disposition: Home Clinical Impression: Avulsion of finger tip Qualifiers: Encounter type: initial encounter Qualified Code(s): S61.209A - Unspecified open wound of unspecified finger without damage to nail, initial encounter Instructions: DI for Avulsion Laceration (Not Requiring Sutures) Activity Restrictions/Additional Instructions: Follow-up with your physician or orthopedic surgery if you prefer in the next 5-7 days for recheck. Take antibiotics until completely gone. You may use Tylenol and/or ibuprofen as needed for pain. Wound Care: Keep wound(s) clean and dry. Wash daily with soap and water only. Do not use over the counter products (alcohol or peroxide)on the wounds unless instructed by a physician, you may use triple antibiotic ointment to each affected area. Change her dressing daily or if dirty, using nonstick dressing. If wound condition worsens (increased/expanding redness, developing fluid blisters, or worsening pain), either contact your doctor for an urgent re-assessment , or return to the Emergency Department. Return to the Emergency Department for any new or worsening symptoms. Return if fever greater than 100.4 Fahrenheit, increased swelling, increasing pain or worsening symptoms such as increased discharge or spreading redness. Prescriptions: New cephalexin [Keflex] 500 mg capsule 500 mg PO QID Qty: 40 RF: 0 No Action aspirin 81 MG tablet,delayed release (DR/EC) 81 mg PO QPM Qty: 0 RF: 0 tamsulosin [Flomax] 0.4 mg capsule 0.4 mg PO QDAY Qty: 90 RF: 0 lovastatin 20 mg tablet 20 mg PO QPM Qty: 90 RF: 0 amlodipine 5 mg tablet 5 mg PO DAILY Qty: 90 RF: 0 losartan 100 mg tablet 100 mg PO DAILY Qty: 90 RF: 2 triamcinolone acetonide 0.5 % cream 1 applictn TOP DAILY Qty: 15 RF: 2 Referrals: Robert Moise MD [Primary Care Provider] -
--- NOTE | 2020-05-26 17:17 | DI.RAD.S_ITS ---
PROCEDURE: XR HAND LT MIN 3V INDICATIONS: 2/3rd finger, very tip of finger avulsion with table saw. TECHNIQUE: Three views of the hand(s) acquired. COMPARISON: None. FINDINGS: Bones: No fractures or dislocations. There is joint space loss at the 2nd through 5th distal interphalangeal joints, particularly severe at the 5th where there is mild osseous remodeling and spurring. Questionable periarticular erosive change along the medial aspect of the 3rd and 4th proximal phalanx base. Possible periarticular lucencies along the medial and lateral aspects of the proximal and middle phalanges two through five. Carpal bones are normally aligned. No suspicious bony lesions. Soft tissues: Small soft tissue defects off the tip of the 2nd and 3rd digit are seen. No radiodense foreign bodies in the tissues. No suspicious soft tissue calcifications. IMPRESSION: 1. Soft tissue injury to the distal 2nd and 3rd digit without underlying foreign body or fracture. 2. Osteoarthritic changes. 3. Possible periarticular erosive changes raising the possibility of inflammatory arthritis. Dictated by: Lesli Davison M.D. on 05/26/2020 at 17:38 Approved by: Lesli Davison M.D. on 05/26/2020 at 17:41
[2020-05-26] MEDS: cephALEXin 250 MG CAPSULE 500 MG PO (17:31)
[2020-05-26] MEDS: TET,DIPH,PERTUSS(ACELL),VAC/PF 0.5 ML SYRINGE IM (17:32)
[2020-05-26 18:06] VITALS: BP 135/75; PULSE 76; RESP 20; O2SAT 100
== END 2020-05-26 18:07 | disposition home or self-care (01) ==
PROVIDERS: Emergency Provider Emergency Medicine; PCP Student in an Organized Health Care Education/Training Program
DX: S61.209A Unspecified open wound of unspecified finger without damage to nail, initial encounter (principal); W29.3XXA Contact with powered garden and outdoor hand tools and machinery, initial encounter; E78.5 Hyperlipidemia, unspecified; I10 Essential (primary) hypertension; Z23 Encounter for immunization
CPT/HCPCS: 73130; 90471; 99281; 99283; 90715

== ENCOUNTER → 2020-08-22 09:53 | Outpatient (CLI) | payer MEDICARE, SELFPAY ==
[2020-08-22 10:46] LABS: Hematocrit 38.8 % (41-53); Hemoglobin 13.4 g/dL (13.5-17.5); Mean Corpuscular HGB Conc 34.6 % (30-36); Mean Corpuscular Hemoglobin 34.3 PG (26-34); Mean Corpuscular Volume 99.3 fL (80-100); Platelet Count 148 X10^3/uL (150-400); Red Cell Distribution Width 13.1 % (11.6-14.8); White Blood Cell Count 3.9 X10^3/uL (4.5-11.0)
[2020-08-22 11:09] LABS: Neutrophils Absolute Manual 2340 /uL (3000-5900); Total Cells Counted 100
[2020-08-22 11:10] LABS: RBC Morphology Normal Morphology
[2020-08-22 11:12] LABS: Alanine Aminotransferase 16 IU/L (<50); Albumin 4.1 g/dL (3.5-5.0); Albumin Globulin Ratio 0.9 (1.0-2.8); Alkaline Phosphatase 60 U/L (38-126); Aspartate Aminotransferase 25 IU/L (17-59); BUN Creatinine Ratio 19.6 (6-22); Blood Urea Nitrogen 19 mg/dL (9-20); Calcium 9.3 mg/dL (8.4-10.2); Carbon Dioxide 26 mmol/L (22-32); Chloride 105 mmol/L (98-107); Estimated Glomerular Filt Rate > 60.0 mL/min (>60); Globulin 4.6 g/dL (1.7-4.1); Glucose 93 mg/dL (80-110); HEMOLYSIS < 15 (0-50); Potassium 4.2 mmol/L (3.4-5.1); Sodium 138 mmol/L (137-145); Total Protein 8.7 g/dL (6.3-8.2)
[2020-08-23 14:08] LABS: Free Kappa Lt Chains, Serum 26.7 mg/L (3.3-19.4); Free Lambda Lt Chains,Serum 9.2 mg/L (5.7-26.3)
[2020-08-24 11:36] LABS: Albumin 3.9 g/dL (2.9-4.4); Alpha-1-Globulin 0.2 g/dL (0.0-0.4); Alpha-2-Globulin 0.6 g/dL (0.4-1.0); Gamma Globulin 2.7 g/dL (0.4-1.8); Globulin Total 4.4 g/dL (2.2-3.9); Protein, Total 8.3 g/dL (6.0-8.5)
== END ==
PROVIDERS: PCP Student in an Organized Health Care Education/Training Program; Referring Provider Student in an Organized Health Care Education/Training Program; Visit Provider Student in an Organized Health Care Education/Training Program
DX: D47.2 Monoclonal gammopathy (principal)
CPT/HCPCS: 36415; 80053; 83883; 84155; 84165; 85025

== ENCOUNTER → 2020-11-18 10:48 | Outpatient (CLI) | payer MEDICARE, SELFPAY ==
--- NOTE | 2020-11-18 10:49 | DI.RAD.S_ITS ---
PROCEDURE: XR BONE SURVEY INDICATIONS: staging TECHNIQUE: Multiple views obtained of various bony structures as described below. COMPARISON: None. FINDINGS: Skull (lateral): No suspicious bony lesions. No fractures. Probable craniotomy and mesh repair in the region of the mastoid cavities and occiput. Thoracic spine (AP, lateral): No suspicious bony lesions. No acute vertebral body compression fractures. Mild degenerative endplate spurring. Lumbar spine (AP, lateral): No suspicious bony lesions. No acute vertebral body compression fractures. Trace spondylolisthesis and facet arthropathy. Abdominal aortic atherosclerosis. Pelvis (AP): No suspicious bony lesions. No fractures. Overlying soft tissues appear unremarkable. Right and left humeri (AP): No suspicious bony lesions. No fractures. Overlying soft tissues appear unremarkable. Right and left femurs (AP): No suspicious bony lesions. No fractures. Overlying soft tissues appear unremarkable. Mild bilateral degenerative changes in the femoroacetabular joints. IMPRESSION: 1. No discrete lytic lesions. 2. Prior surgical changes overlying the occipital region of the skull. 3. Mild degenerative changes. Dictated by: Lesli Davison M.D. on 11/18/2020 at 14:38 Approved by: Lesli Davison M.D. on 11/18/2020 at 14:44
== END ==
PROVIDERS: PCP Student in an Organized Health Care Education/Training Program; Referring Provider Internal Medicine Medical Oncology; Visit Provider Internal Medicine Medical Oncology
DX: D47.2 Monoclonal gammopathy (principal)
CPT/HCPCS: 77075

== ENCOUNTER → 2020-11-29 06:59 | Outpatient (CLI) | payer MEDICARE, SELFPAY ==
--- NOTE | 2020-11-29 07:02 | DI.MRI.S_ITS ---
PROCEDURE: MR BONE MARROW INDICATIONS: myeloma staging TECHNIQUE: Noncontrast sagittal T1 spin echo and STIR through the spine; coronal T1 spin echo and STIR through the bony thorax, coronal T1 spin echo and STIR through the bony pelvis and femurs. COMPARISON: [facility], CR, XR BONE SURVEY, 11/18/2020, 11:04. FINDINGS: Image quality: Excellent. Spine: All visualized vertebral bodies are normally aligned. No vertebral body compression fractures. No suspicious intraosseous lesion. Degenerative endplate changes and loss of disc height is seen throughout visualized mid to lower cervical spine, thoracic spine and lumbar spine more pronounced at T6-7 and L2-3 levels. The central spinal canal is of normal overall caliber. The visualized spinal cord demonstrates normal intramedullary signal. The conus is in expected position. No epidural or paravertebral soft tissue masses. Pelvis and hips: The bone marrow demonstrates normal signal throughout. No pelvic ring or sacral pathologic or insufficiency fractures. Mild to moderate bilateral hip joint osteoarthritic changes are seen. No evidence of avascular necrosis of femoral head. Physiologic amounts of hip joint fluid are present. No joint degeneration or soft tissue bursal fluid collections. Soft tissues: No free pelvic fluid. No pathologic pelvic or inguinal adenopathy. Visualized bowel loops appear normal in caliber. Limited images through the genitourinary tract demonstrate no abnormalities. The muscles demonstrate normal overall bulk and internal signal. IMPRESSION: 1. No suspicious intraosseous lesion is seen in the spine and bony pelvis. No suspicious bony lesion is seen in bilateral femur or visualized portion of bilateral ribs and shoulder joints. 2. Degenerative disc disease throughout lower cervical spine, thoracic spine and lumbar spine more prominent at T6-7 and L2-3 levels as above. No spinal cord signal abnormality. 3. No gross soft tissue mass or abnormal fluid collection is seen. No gross muscle or tendon signal abnormality. Dictated by: Gary Mcintosh M.D. on 11/29/2020 at 10:47 Approved by: Gary Mcnitosh M.D. on 11/29/2020 at 11:11
== END ==
PROVIDERS: PCP Student in an Organized Health Care Education/Training Program; Referring Provider Internal Medicine Medical Oncology; Visit Provider Internal Medicine Medical Oncology
DX: D47.2 Monoclonal gammopathy (principal); M50.31 Other cervical disc degeneration, high cervical region; M51.34 Other intervertebral disc degeneration, thoracic region; M51.36 Other intervertebral disc degeneration, lumbar region
CPT/HCPCS: 77084

== ENCOUNTER → 2021-02-24 13:45 | Outpatient (CLI) | payer MEDICARE, SELFPAY ==
[2021-02-27 12:49] LABS: Fecal Immunochemical Test Negative (Negative)
== END ==
PROVIDERS: PCP Student in an Organized Health Care Education/Training Program; Referring Provider Student in an Organized Health Care Education/Training Program; Visit Provider Student in an Organized Health Care Education/Training Program
DX: Z12.11 Encounter for screening for malignant neoplasm of colon (principal)
CPT/HCPCS: 82274

== ENCOUNTER → 2021-06-22 10:12 | Outpatient (CLI) | payer MEDICARE, SELFPAY ==
--- NOTE | 2021-06-22 10:14 | DI.RAD.S_ITS ---
PROCEDURE: XR LUMBAR SPINE MIN 4V INDICATIONS: acute on chronic low back pain TECHNIQUE: 5 views of the lumbar spine were acquired, including bilateral oblique views. COMPARISON: None. FINDINGS: Bones: 5 nonrib-bearing vertebrae are present. There is mild L2-L3 and L3-L4 retrolisthesis. There is mild L4-L5 anterolisthesis. No vertebral body compression fractures. No suspicious bony lesions. Moderate L5-S1 degenerative disc changes. Mild L1-L2, L2-L3, L3-L4 and L4-L5 degenerative disc disease. Moderate L4-L5 and L5-S1 facet arthropathy. Mild L2-L3 and L3-L4 facet arthropathy. Soft tissues: Overlying bowel gas pattern is normal. No suspicious soft tissue calcifications. Oblique images: No pars defects. IMPRESSION: 1. Multilevel degenerative disc disease. 2. Multilevel facet arthropathy. 3. No fracture. No acute osseous lesion. If symptoms and/or clinical suspicion for pathology persists, evaluation with MRI should be considered for further assessment. Dictated by: Billie Beltran MD, PhD on 06/22/2021 at 15:01 Approved by: Billie Beltran MD, PhD on 06/22/2021 at 15:02
== END ==
PROVIDERS: PCP Student in an Organized Health Care Education/Training Program; Referring Provider Family Medicine; Visit Provider Family Medicine
DX: M51.36 Other intervertebral disc degeneration, lumbar region (principal); M47.816 Spondylosis without myelopathy or radiculopathy, lumbar region; M47.817 Spondylosis without myelopathy or radiculopathy, lumbosacral region; M54.50 Low back pain, unspecified; G89.29 Other chronic pain
CPT/HCPCS: 72110

== ENCOUNTER → 2023-03-01 09:14 | Outpatient (CLI) | payer MEDICARE, SELFPAY ==
[2023-03-02 12:49] LABS: Rubeola Measles IgG > 300.0 AU/mL (Immune >16.4); Varicella IgG Antibody <135 index (Immune >165)
== END ==
PROVIDERS: PCP Family Medicine; Referring Provider Family Medicine; Visit Provider Family Medicine
DX: Z01.84 Encounter for antibody response examination (principal)
CPT/HCPCS: 36415; 86765; 86787

== ENCOUNTER → 2023-09-10 10:27 | Outpatient (CLI) | payer MEDICARE, SELFPAY ==
[2023-09-10 11:17] LABS: Add Manual Diff / Slide Review NO; Basophils Absolute Auto 0 /uL (0-100); Basophils Percent Auto 0.6 % (0-2); Eosinophils Absolute Auto 100 /uL (0-450); Eosinophils Percent Auto 2.6 % (2-4); Hematocrit 40.2 % (41-53); Hemoglobin 13.6 g/dL (13.5-17.5); Lymphocytes Absolute Auto 900 /uL (1100-4500); Lymphocytes Percent Auto 17.9 % (25-40); Mean Corpuscular HGB Conc 33.8 % (30-36); Mean Corpuscular Hemoglobin 33.7 PG (26-34); Mean Corpuscular Volume 99.6 fL (80-100); Monocytes Absolute Auto 700 /uL (0-900); Monocytes Percent Auto 13.4 % (3-14); Neutrophils Absolute Auto 3500 /uL (1500-7000); Neutrophils Percent Auto 65.5 % (50-75); Platelet Count 194 X10^3/uL (150-400); Red Blood Cell Count 4.03 X10^6/uL (4.5-5.9); Red Cell Distribution Width 13.3 % (11.6-14.8); White Blood Cell Count 5.3 X10^3/uL (4.5-11.0)
[2023-09-10 11:42] LABS: Creatinine Urine Random 159.31 mg/dL
[2023-09-10 11:46] LABS: Alanine Aminotransferase 13 IU/L (<50); Albumin 3.8 g/dL (3.5-5.0); Alkaline Phosphatase 66 U/L (38-126); Aspartate Aminotransferase 20 IU/L (17-59); BUN Creatinine Ratio 18.5 (6-22); Bilirubin Total 0.7 mg/dL (0.2-1.3); Blood Urea Nitrogen 17 mg/dL (9-20); Calcium 8.6 mg/dL (8.4-10.2); Carbon Dioxide 27 mmol/L (22-32); Chloride 109 mmol/L (98-107); Cholesterol 140 mg/dL (140-199); Estimated Glomerular Filt Rate > 60 mL/min (>60); Glucose 91 mg/dL (80-110); HDL Cholesterol 36 mg/dL (40-60); HEMOLYSIS < 15 (0-50); LDL Cholesterol Calculated 74 mg/dL (<100); Potassium 4.3 mmol/L (3.4-5.1); Sodium 138 mmol/L (137-145); Total Protein 7.8 g/dL (6.3-8.2); Triglycerides 149 mg/dL (35-150)
[2023-09-10 11:48] LABS: Microalbumin Urine Random 1.4 mg/dL (0-1.6)
[2023-09-10 11:58] LABS: Vitamin D 25 Hydroxy (D3) 59.6 ng/mL (30.0-100.0)
[2023-09-10 12:10] LABS: TSH w/ Reflex to FT4 2.35 uIU/mL (0.47-4.68)
[2023-09-10 12:32] LABS: Vitamin B12 207 pg/mL (239-931)
[2023-09-10 17:48] LABS: Hep C Virus Ab w/Reflex Quant NEGATIVE s/c (NEGATIVE)
== END ==
PROVIDERS: PCP Family Medicine; Referring Provider Family Medicine; Visit Provider Family Medicine
DX: Z11.59 Encounter for screening for other viral diseases (principal); I10 Essential (primary) hypertension; R53.83 Other fatigue; Z13.21 Encounter for screening for nutritional disorder; E78.5 Hyperlipidemia, unspecified; N40.0 Benign prostatic hyperplasia without lower urinary tract symptoms; G43.909 Migraine, unspecified, not intractable, without status migrainosus
CPT/HCPCS: 36415; 80053; 80061; 82043; 82306; 82570; 82607; 84402; 84403; 84443; 85025; 86803

== ENCOUNTER → 2024-01-07 14:34 | Outpatient (CLI) | payer MEDICARE, SELFPAY ==
[2024-01-07 15:28] LABS: Add Manual Diff / Slide Review NO; Basophils Absolute Auto 0 /uL (0-100); Basophils Percent Auto 0.9 % (0-2); Eosinophils Absolute Auto 100 /uL (0-450); Eosinophils Percent Auto 2.9 % (2-4); Hematocrit 39.9 % (41-53); Hemoglobin 13.5 g/dL (13.5-17.5); Lymphocytes Absolute Auto 1100 /uL (1100-4500); Lymphocytes Percent Auto 22.7 % (25-40); Mean Corpuscular Volume 100.1 fL (80-100); Monocytes Absolute Auto 600 /uL (0-900); Monocytes Percent Auto 12.4 % (3-14); Neutrophils Absolute Auto 2900 /uL (1500-7000); Neutrophils Percent Auto 61.1 % (50-75); Platelet Count 190 X10^3/uL (150-400); Red Blood Cell Count 3.98 X10^6/uL (4.5-5.9); Red Cell Distribution Width 13.3 % (11.6-14.8); White Blood Cell Count 4.7 X10^3/uL (4.5-11.0)
[2024-01-07 16:59] LABS: Urine N gonorrhoeae NOT DETECTED
[2024-01-07 17:03] LABS: Urine Chlamydia NOT DETECTED
[2024-01-08 19:47] LABS: Vitamin B12 Reflex MMA if <400 194 pg/mL (239-931)
== END ==
PROVIDERS: PCP Family Medicine; Referring Provider Family Medicine; Visit Provider Family Medicine
DX: E53.8 Deficiency of other specified B group vitamins (principal); Z11.3 Encounter for screening for infections with a predominantly sexual mode of transmission; I10 Essential (primary) hypertension
CPT/HCPCS: 36415; 82607; 83921; 85025; 86592; 87389; 87491; 87591

== ENCOUNTER → 2024-01-21 06:52 | Outpatient (CLI) | payer MEDICARE, SELFPAY ==
--- NOTE | 2024-01-21 06:53 | DI.US.S_ITS ---
PROCEDURE: US CAROTID DOPPLER BI INDICATIONS: hypertension, hyperlipidemia, orthostatic dizziness TECHNIQUE: Color and pulse Doppler interrogation was performed of both carotid systems, with image documentation and velocity measurements. COMPARISON: [facility], , CAROTID ARTERY DOPPLER BILAT, 08/29/2015, 7:34. FINDINGS: Stenosis calculations are based on SRU (Society of Radiologists in Ultrasound) criteria. Right side: Brachial blood pressure: 161/87 mm Hg. Common carotid artery peak systolic velocity: 72 cm/sec. Internal carotid artery peak systolic velocity: 71 cm/sec. Internal carotid artery end diastolic velocity: 22 cm/sec. External carotid artery peak systolic velocity: 96 cm/sec. ICA/CCA peak systolic ratio: 1.0. Garay scale imaging description: Mild atherosclerotic plaques are seen involving origin of right internal carotid artery. Percent internal carotid artery stenosis: Less than 50%. Vertebral artery: Flow direction is antegrade. Left side: Brachial blood pressure: 155/88 mm Hg. Common carotid artery peak systolic velocity: 84 cm/sec. Internal carotid artery peak systolic velocity: 72 cm/sec. Internal carotid artery end diastolic velocity: 22 cm/sec. External carotid artery peak systolic velocity: 84 cm/sec. ICA/CCA peak systolic ratio: 0.9. Garay scale imaging description: Mild atherosclerotic plaques are seen in distal common carotid artery and proximal internal carotid artery. Percent internal carotid artery stenosis: Less than 50%. Vertebral artery: Flow direction is antegrade. IMPRESSION: 1. Finding is consistent with less than 50% stenosis in bilateral proximal internal carotid arteries. 2. Normal antegrade flow is seen in bilateral vertebral arteries. Dictated by: Gary Mcintosh M.D. on 01/21/2024 at 11:54 Approved by: Gary Mcintosh M.D. on 01/21/2024 at 11:56
== END ==
PROVIDERS: PCP Family Medicine; Referring Provider Family Medicine; Visit Provider Family Medicine
DX: I65.23 Occlusion and stenosis of bilateral carotid arteries (principal); R42 Dizziness and giddiness; I10 Essential (primary) hypertension; E78.5 Hyperlipidemia, unspecified
CPT/HCPCS: 93880

== ENCOUNTER → 2024-02-11 06:56 | Outpatient (CLI) | payer MEDICARE, SELFPAY ==
--- NOTE | 2024-02-11 06:57 | DI.ECHO.S_ITS ---
[place] +---------+ Hospital : : [address] : : [place] : : [id number] : : Phone: [phone] Echocardiogram Report + + :Name: TALIA ESCALONA Study Date: 02/11/2024 Height: 69 in : :Hospital ReadingLocation: Weight: 199 lb : : Gender: Male BSA: 2.1 m2 : :: 1945 Age: 78 yrs BP: 162/100 mmHg: :Reason For Study: HEART MURMUR : :Ordering Physician: CASANDRA, : :MATTIE Miller Performed By: Bri Prescott : :Referring: MATTIE GUAJARDO : + + Interpretation Summary 1) Normal left ventricular size, wall motion, and systolic function (EF 55- 60%). 2) Normal right ventricular size and function. 3) No significant valvular abnormalities. 4) No prior Echo available for comparison. Procedure: A two-dimensional transthoracic echocardiogram with color flow and Doppler was performed. The study quality was technically adequate. There is no prior echocardiogram noted for this patient. The patient was in sinus bradycardia with heart rates between 57-65 bpm during the exam. Left Ventricle: The left ventricle is normal in size. Left ventricular wall thickness is at the upper limits of normal. The ejection fraction is estimated to be 55-60%. Left ventricular systolic function appears normal without focal wall motion abnormalities. Diastolic parameters suggest a relaxation abnormality of the left ventricle, consistent with probable normal filling pressures. Right Ventricle: The right ventricle is normal in size and function. Atria: The left atrial size is normal. Right atrial size is normal. The atrial septum is aneurysmal. There is no Doppler evidence for an interatrial shunt. Mitral Valve: The mitral valve is normal in structure and function. There is trace mitral regurgitation. Aortic Valve: The aortic valve is trileaflet. The aortic valve is mildly calcified. There is no aortic valve stenosis. No aortic regurgitation is present. Tricuspid Valve: The tricuspid valve is normal in structure and function. There is trace tricuspid regurgitation. Right ventricular systolic pressure is estimated to be 22 mmHg plus the clinically estimated CVP which cannot be estimated on this exam. Pulmonic Valve: The pulmonic valve leaflets are thin and pliable; valve motion is normal. There is mild pulmonic regurgitation. Great Vessels: The aortic root is normal size. The dimensions of the ascending aorta are normal. The inferior vena cava was not well visualized. Pericardium/ Pleura There is no pericardial effusion. There is no pleural effusion. MMode/2D Measurements & Calculations LVIDd: 4.9 cm LVOT diam: 2.1 cm LVIDs: 3.2 cm Ao root diam: 3.5 cm FS: 35.5 % asc Aorta Diam: 3.7 cm EPSS: 0.85 cm Ao Arch Diam (Prox Trans): 3.2 cm IVSd: 1.2 cm LVPWd: 0.96 cm LV camacho. diameter/BSA (cm/m^2): 2.4 LV sys. diameter/BSA (cm/m^2): 1.5 LA A2 area: 20.0 cm2 RA long axis: 5.2 cm LA A4 area: 15.7 cm2 RA area: 10.5 cm2 LA length (vol): 4.9 cm RA vol: 17.7 ml LA vol: 54.8 ml RA : 8.6 ml/m2 LA vol index: 26.6 ml/m2 RVD1 (basal): 2.9 cm TAPSE: 1.9 cm Doppler Measurements & Calculations Ao V2 max: 186.6 cm/sec LVOT Max Xavier: 88.7 cm/sec Ao V2 mean: 125.8 cm/sec LV V1 max P.1 mmHg Ao max P.9 mmHg LV V1 VTI: 23.1 cm Ao mean P.2 mmHg GERARD(I,D): 2.1 cm2 Ao V2 VTI: 40.5 cm GERARD(V,D): 1.7 cm2 sev ratio: 0.57 GERARD indexed to BSA (cm^2/m^2): 1.00 MV E max xavier: 67.3 cm/sec TR max xavier: 234.8 cm/sec MV A max xavier: 68.1 cm/sec TR max P.0 mmHg MV E/A: 0.99 PA V2 max: 126.4 cm/sec Med Peak E' Xavier: 6.7 cm/sec PA V2 mean: 88.2 cm/sec E/E' med: 10.0 PA mean P.5 mmHg Lat Peak E' Xavier: 7.0 cm/sec PA pr(Accel): 36.2 mmHg E/E' lat: 9.7 E/e' average: 9.8 MV dec time: 0.21 sec SV(LVOT): 83.0 ml Reading Physician:09:56 AM
== END ==
PROVIDERS: PCP Family Medicine; Referring Provider Family Medicine; Visit Provider Family Medicine
DX: I37.1 Nonrheumatic pulmonary valve insufficiency (principal); R01.1 Cardiac murmur, unspecified; R42 Dizziness and giddiness
CPT/HCPCS: 93306

== ENCOUNTER → 2024-09-03 09:31 | Outpatient (CLI) | payer MEDICARE, SELFPAY ==
[2024-09-03 10:23] LABS: Hematocrit 40.9 % (41-53); Hemoglobin 13.9 g/dL (13.5-17.5); Mean Corpuscular HGB Conc 34.1 % (30-36); Mean Corpuscular Hemoglobin 33.9 PG (26-34); Mean Corpuscular Volume 99.4 fL (80-100); Platelet Count 230 X10^3/uL (150-400); Red Blood Cell Count 4.12 X10^6/uL (4.5-5.9); Red Cell Distribution Width 12.8 % (11.6-14.8); White Blood Cell Count 5.3 X10^3/uL (4.5-11.0)
[2024-09-03 10:42] LABS: Alanine Aminotransferase 18 IU/L (<50); Albumin 3.7 g/dL (3.5-5.0); Albumin Globulin Ratio 0.9 (1.0-2.8); Alkaline Phosphatase 70 U/L (38-126); Aspartate Aminotransferase 23 IU/L (17-59); BUN Creatinine Ratio 15.8 (6-22); Bilirubin Total 0.9 mg/dL (0.2-1.3); Blood Urea Nitrogen 18 mg/dL (9-20); Calcium 9.2 mg/dL (8.4-10.2); Carbon Dioxide 26 mmol/L (22-32); Chloride 103 mmol/L (98-107); Cholesterol 131 mg/dL (140-199); Estimated Glomerular Filt Rate > 60 mL/min (>60); Globulin 4.2 g/dL (1.7-4.1); Glucose 95 mg/dL (70-99); HDL Cholesterol 32 mg/dL (40-60); HEMOLYSIS < 15 (0-50); LDL Cholesterol Calculated 78 mg/dL (<100); Potassium 4.4 mmol/L (3.4-5.1); Sodium 136 mmol/L (137-145); Total Protein 7.9 g/dL (6.3-8.2); Triglycerides 106 mg/dL (35-150)
[2024-09-03 11:10] LABS: Prostate Specific Antigen Scrn 8.33 ng/mL (0.1-4.0)
[2024-09-03 11:16] LABS: Microalbumin Urine Random 2.8 mg/dL (0-1.6)
[2024-09-03 11:29] LABS: Vitamin B12 Reflex MMA if <400 > 1000 pg/mL (239-931)
== END ==
PROVIDERS: PCP Family Medicine; Referring Provider Family Medicine; Visit Provider Family Medicine
DX: E53.8 Deficiency of other specified B group vitamins (principal); E78.5 Hyperlipidemia, unspecified; Z12.5 Encounter for screening for malignant neoplasm of prostate; N40.1 Benign prostatic hyperplasia with lower urinary tract symptoms; N13.8 Other obstructive and reflux uropathy; R39.198 Other difficulties with micturition; I10 Essential (primary) hypertension; D47.2 Monoclonal gammopathy
CPT/HCPCS: 36415; 80053; 80061; 82043; 82570; 82607; 85027; G0103

== ENCOUNTER → 2024-11-16 11:58 | Outpatient (CLI) | payer MEDICARE, SELFPAY | PROVIDERS: PCP Family Medicine; Referring Provider Family Medicine; Visit Provider Family Medicine | DX: Z12.5 Encounter for screening for malignant neoplasm of prostate (principal); R39.198 Other difficulties with micturition; N40.1 Benign prostatic hyperplasia with lower urinary tract symptoms; R97.20 Elevated prostate specific antigen [PSA]; N13.8 Other obstructive and reflux uropathy | CPT/HCPCS: 36415; G0103 ==

== ENCOUNTER 2025-03-25 10:02 | Emergency (ER) | payer MEDICARE, SELFPAY ==
[2025-03-25 10:17] VITALS: BP 191/97; PULSE 80; RESP 16; TEMP 37.2; O2SAT 97; BMI 29.5
--- NOTE | 2025-03-25 10:23 | DI.CT.S_ITS ---
PROCEDURE: CT HEAD/BRAIN WO CON INDICATIONS: htn/headache TECHNIQUE: Noncontrast 4.5 mm thick angled axial sections acquired from the foramen magnum to the vertex, with coronal and sagittal reformats. For radiation dose reduction, the following was used: automated exposure control, adjustment of mA and/or kV according to patient size. COMPARISON: [facility], CT, HEAD WITHOUT CONTRAST, 01/04/2017, 15:46. FINDINGS: Image quality: Diagnostic. CSF spaces: Basal cisterns are patent. No extra-axial fluid collections. The ventricles are symmetric in size and shape. Brain: No intracranial bleeds or mass effect. There is cerebral volume loss, with resultant ventricular and sulcal prominence. There are periventricular and deep white matter chronic small vessel ischemic changes. There is intracranial internal carotid artery atherosclerosis. Skull and face: Remote left occipital craniectomy. Calvarium and visualized facial bones appear intact, without suspicious lesions. Sinuses: Visualized sinuses and mastoids are clear. IMPRESSION: No acute intracranial pathology. Dictated by: Candido Kang M.D. on 03/25/2025 at 11:27 Approved by: Candido Kang M.D. on 03/25/2025 at 11:27
--- NOTE | 2025-03-25 10:23 | DI.CT.S_ITS ---
PROCEDURE: CT ANGIO HEAD AND NECK INDICATIONS: htn/headache TECHNIQUE: After the administration of intravenous contrast, 1 mm thick sections acquired from the aortic arch through the [place]. 3-dimensional odgejqv-lcrualuqi-lwxmoscawe (MIP) and/or volume rendering reformats were acquired of the central intracranial vasculature and neck separately. For radiation dose reduction, the following was used: automated exposure control, adjustment of mA and/or kV according to patient size. COMPARISON: [facility], CT, CT HEAD/BRAIN WO CON, 03/25/2025, 11:09. FINDINGS: Image quality: Diagnostic. Cerebral CT Angiogram: Internal carotid arteries: No acute findings. Intracranial ICA are patent with no significant stenosis. No occlusion. No aneurysm. Anterior cerebral arteries: Unremarkable. No significant stenosis. No occlusion. No aneurysm. Middle cerebral arteries: Unremarkable. No significant stenosis. No occlusion. No aneurysm. Posterior cerebral arteries: Unremarkable. No significant stenosis. No occlusion. No aneurysm. Basilar artery: Unremarkable. No significant stenosis. No occlusion. No aneurysm. Vertebral arteries: Unremarkable as visualized. Dural venous sinuses: Unremarkable given phase of enhancement. Other: Arterial phase appearance of the brain parenchyma is unremarkable. Neck CT Angiogram: Internal carotid arteries: Mild bilateral calcified proximal internal carotid artery stenosis less than 50%. No significant stenosis. No dissection or occlusion. Common carotid arteries: Unremarkable. No significant stenosis. No dissection or occlusion. External carotid arteries: Unremarkable. No occlusion. Vertebral arteries: Unremarkable. No significant stenosis. No dissection or occlusion. Aortic Arch and Mediastinum: Partially visualized aortic arch unremarkable without evidence of aneurysm. Origins of the great vessels unremarkable. Other: Arterial phase soft tissues of the neck and chest are unremarkable. IMPRESSION: No significant intracranial arterial abnormality is seen. No significant abnormality is seen within the arteries of the neck. Any quantitative measurements of stenosis were performed using NASCET criteria. Dictated by: Candido Kang M.D. on 03/25/2025 at 11:30 Approved by: Candido Kang M.D. on 03/25/2025 at 11:32
--- NOTE | 2025-03-25 10:23 | DI.RAD.S_ITS ---
PROCEDURE: XR CHEST 1V INDICATIONS: Chest Pain TECHNIQUE: One view of the chest was acquired. COMPARISON: None. FINDINGS: Surgical changes and devices: None. Lungs and pleura: Lungs are clear. No pleural effusions or pneumothorax. Mediastinum: Mediastinal contours appear normal. Question hiatal hernia. Heart size is normal. Bones and chest wall: No suspicious bony lesions. Overlying soft tissues appear unremarkable. IMPRESSION: No acute cardiopulmonary abnormality is seen. Question hiatal hernia. Dictated by: Candido Kang M.D. on 03/25/2025 at 11:03 Approved by: Candido Kang M.D. on 03/25/2025 at 11:03
--- NOTE | 2025-03-25 10:38 | EKG_ITS ---
[facility] [address] [address] Test Date: 2025-03-25 Pat Name: Mukund Parry Department: [facility] Room: Gender: Male [employer]: : 1945 Requested By: Order Number: [id number] Reading MD: Fausto Chester MD Measurements Intervals [place] Rate: 66 P: 17 CA: 148 QRS: 21 QRSD: 140 T: 4 QT: 404 QTc: 423 Interpretive Statements Normal sinus rhythm Right bundle branch block Cannot rule out Inferior infarct , age undetermined NO PRIOR TRACING Electronically Signed On 03-25-2025 17:18:25 PST by Fausto Chester MD
[2025-03-25 10:40] LABS: Add Manual Diff / Slide Review NO; Hematocrit 43.1 % (41-53); Hemoglobin 14.7 g/dL (13.5-17.5); Lymphocytes Absolute Auto 900 /uL (1100-4500); Mean Corpuscular HGB Conc 34.1 % (30-36); Mean Corpuscular Hemoglobin 33.6 PG (26-34); Mean Corpuscular Volume 98.5 fL (80-100); Platelet Count 175 X10^3/uL (150-400)
[2025-03-25 10:48] LABS: INR 1.1 (0.9-1.3); Prothrombin Time 11.9 SECONDS (9.4-12.5)
[2025-03-25 10:51] LABS: PTT Partial Thromboplastin Tim 30 SECONDS (25.1-36.5)
[2025-03-25 10:53] LABS: Alanine Aminotransferase 15 IU/L (<50); Albumin 4.1 g/dL (3.5-5.0); Albumin Globulin Ratio 0.9 (1.0-2.8); Alkaline Phosphatase 59 U/L (38-126); Blood Urea Nitrogen 16 mg/dL (9-20); Calcium 9.0 mg/dL (8.4-10.2); Carbon Dioxide 24 mmol/L (22-32); Chloride 108 mmol/L (98-107); Creatine Kinase 52 U/L (55-170); Estimated Glomerular Filt Rate > 60 mL/min (>60); Globulin 4.6 g/dL (1.7-4.1); Glucose 109 mg/dL (70-99); HEMOLYSIS 24 (0-50); Lipase 59 U/L (23-300); Magnesium 1.9 mg/dL (1.6-2.3); Potassium 4.2 mmol/L (3.4-5.1); Sodium 139 mmol/L (137-145); Total Protein 8.7 g/dL (6.3-8.2)
[2025-03-25 11:05] LABS: NT-proBNP (BNP-Adult 18+) 30 pg/mL (<450); Troponin I < 0.012 ng/mL (0.01-0.034)
--- NOTE | 2025-03-25 11:54 | ED.GENADULT ---
HPI - General Adult General Chief complaint: Hypertension Stated complaint: High blood pressure, on blood pressure meds Time Seen by Provider: 03/25/25 10:16 Source: patient, RN notes reviewed and old records reviewed Mode of arrival: Ambulatory Limitations: no limitations History of Present Illness HPI narrative: 79-year-old male history of hypertension, dyslipidemia, BPH on aspirin 81 mg daily. Patient presents with complaint of elevated blood pressure. Notes that yesterday he had some vertigo-like symptoms. He felt sort of dizzy with some room spinning. The he states it has not improved over the last 24 hours he. He states he is maybe some very mild symptoms but isn't bothering him at all. He has had prior episodes vertigo in the past. He states it feels very similar. He has has a little bit of mild headache, denies any vision change no diplopia. No nausea or vomiting. No numbness, tingling or weakness. No difficulty with movement. No new facial droop or speech changes. No chest pain or shortness of breath. No issues with bowel movements or urination. Denies any difficulty with ambulation. Patient states he is checking his blood pressure yesterday because of his symptoms ranged between 150 and 170 systolic with a diastolic between 90s and 101. Today checked his blood pressure was 178/96 which is elevated for him so came for evaluation. Patient states home medications or lovastatin, losartan, tamsulosin and aspirin daily. He notes he had had a craniotomy he has a nerve impingement and had surgery for this for decompression. He notes he did have Botox to that area and developed a facial droop afterwards which has been persistent. Reports adverse reaction to Vicodin and codeine. No tobacco, 1 alcoholic drink monthly, no recreational drugs. Dr. Morgan is his primary care physician. Related Data Home Medications ?Medication ?Instructions ?Recorded ?Confirmed cholecalciferol (vitamin D3) 25 25 mcg PO DAILY 09/27/20 03/25/25 mcg (1,000 unit) tablet (Vitamin D3) [id number] 1 tab PO DAILY 09/27/20 03/25/25 750 mg-100 mg-125 mg-1.65 mg tablet (Glucosamine Chondroit Complx Advan) aspirin 81 mg tablet,delayed 81 mg PO QPM ##0 06/25/23 03/25/25 release Previous Rx's ?Medication ?Instructions ?Recorded triamcinolone acetonide 0.5 % 1 applictn topical DAILY #15 grams 02/05/20 topical cream lovastatin 40 mg tablet 40 mg PO QPM #90 tabs 12/31/24 losartan 100 mg tablet 100 mg PO DAILY #90 tabs 01/07/25 tamsulosin 0.4 mg capsule 0.4 mg PO DAILY #90 caps 01/07/25 fluticasone propionate 50 1 spray intranasal BID 90 days #16 02/25/25 mcg/actuation nasal grams spray,suspension Allergies Allergy/AdvReac Type Severity Reaction Status Date / Time hydrocodone (HYDROCODONE) AdvReac Mild VOMITING Verified 03/02/25 11:00 oxycodone (From OXYCONTIN) AdvReac Unknown vomiting Verified 03/02/25 11:00 Review of Systems Review of Systems ROS Unobtainable: All systems reviewed & are unremarkable except as noted in HPI and below Patient History Medical History H/O Mohs micrographic surgery for skin cancer (08/31/24) 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 HEENT: Atraumatic, pupils are equal round reactive to light, extraocular movements are intact, nares are clear, TMs are clear with no fluid, there is no conjunctival pallor. 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 HEART: Regular rate and rhythm without murmur, clicks, rubs. Pulses are equal in upper and lower extremities LUNGS:Lungs clear to auscultation, no wheezes, rales, crackles, chest moves symmetrically ABD:bowel sounds normal, soft, non-tender, no guarding, rebound, rigidity, no masses noted, no hepatosplenomegaly :No CVA tenderness MSCL: Non-tender, no muscle atrophy, muscles strength 5/5 upper and lower extremities, full range of motion, normal gait NEURO:CN 2-12 intact, sensation normal, finger nose finger test normal, heel cohen test normal, no dysarthria, no aphasia. Initial Vital Signs Initial Vital Signs: Vital Signs Temperature 98.9 F 03/25/25 10:17 Pulse Rate 80 03/25/25 10:17 Respiratory Rate 16 03/25/25 10:17 Blood Pressure 191/97 H 03/25/25 10:17 Pulse Oximetry 97 03/25/25 10:17 Oxygen Delivery Method Room Air 03/25/25 10:17 Scores NIH Stroke Scale Level of Conciousness: Alert, keenly responsive Ask month/age: Answers both questions correctly. Open/close eyes, close hand: Performs both tasks correctly Best gaze horizontal: Normal Visual myles: No visual loss Facial palsy: Minor paralysis, flattened nasolabial fold, asymmetry on smiling (patient notes chronic.) Left arm drift: No drift for full 10 sec Right arm drift: No drift for full 10 sec Left leg drift: No drift for full 5 sec Right leg drift: No drift for full 5 sec Limb ataxia: Absent Sensory on face/arms/legs: Normal, no sensory loss Best language: No aphasia, normal Dysarthria: Normal Extinction or inattention: No abnormality Total NIH Stroke scale score: 1 Course Orders Ordered: ED Orders 03/25/25 10:23 CT angio head and neck Stat CT head/brain wo con Stat XR chest 1V Stat EKG-12 Lead Stat 03/25/25 10:30 Complete Blood Count AUTO DIFF Stat Comprehensive Metabolic Panel Stat Lipase Stat Magnesium Stat NT-proBNP (BNP-Adult 18+) Stat PTT Partial Thromboplastin Pérez Stat Prothrombin Time INR Stat Troponin & CK Cardiac Panel Stat Vital Signs Vital signs: Vital Signs - 8 hr 03/25/25 12:11 Pulse Rate 60 Respiratory Rate 16 Blood Pressure 180/93 H Pulse Oximetry 99 Oxygen Delivery Method Room Air Medical Decision Making Lab Data 03/25/25 10:30 03/25/25 10:30 Labs: Lab Results 03/25/25 Range/Units 10:30 WBC 4.8 (4.5-11.0) X10^3/uL RBC 4.38 L (4.5-5.9) X10^6/uL Hgb 14.7 (13.5-17.5) g/dL Hct 43.1 (41-53) % MCV 98.5 (80-100) fL MCH 33.6 (26-34) PG MCHC 34.1 (30-36) % RDW 13.1 (11.6-14.8) % Plt Count 175 (150-400) X10^3/uL Neut % (Auto) 66.8 (50-75) % Lymph % (Auto) 18.5 L (25-40) % [place] % (Auto) 11.5 (3-14) % Eos % (Auto) 1.8 L (2-4) % Baso % (Auto) 1.4 (0-2) % Neut # (Auto) 3200 (9849-7504) /uL Lymph # (Auto) 900 L (0504-5143) /uL [place] # (Auto) 500 (0-900) /uL Eos # (Auto) 100 (0-450) /uL Baso # (Auto) 100 (0-100) /uL PT 11.9 (9.4-12.5) SECONDS INR 1.1 (0.9-1.3) APTT 30 (25.1-36.5) SECONDS Sodium 139 (137-145) mmol/L Potassium 4.2 (3.4-5.1) mmol/L Chloride 108 H (98-107) mmol/L Carbon Dioxide 24 (22-32) mmol/L BUN 16 (9-20) mg/dL Creatinine 0.97 (0.66-1.25) mg/dL Estimated GFR > 60 (>60) mL/min BUN/Creatinine Ratio 16.5 (6-22) Glucose 109 H (70-99) mg/dL Calcium 9.0 (8.4-10.2) mg/dL Magnesium 1.9 (1.6-2.3) mg/dL Total Bilirubin 0.9 (0.2-1.3) mg/dL AST 22 (17-59) IU/L ALT 15 (<50) IU/L Alkaline Phosphatase 59 (38-126) U/L Total Creatine Kinase 52 L (55-170) U/L Troponin I < 0.012 (0.01-0.034) ng/mL NT-Pro-B Natriuret Pep 30 (<450) pg/mL Total Protein 8.7 H (6.3-8.2) g/dL Albumin 4.1 (3.5-5.0) g/dL Globulin 4.6 H (1.7-4.1) g/dL Albumin/Globulin Ratio 0.9 L (1.0-2.8) Lipase 59 (23-300) U/L ECG Data Attestation: I personally reviewed and interpreted this ECG as follows: Prior ECG tracings: not available for review Interpretation: Sinus rhythm rate of 66 GA 148 QRS of 140 QTC of 423 right bundle-branch block. No acute ST-elevation or depression appreciated. Patient does not have prior for comparison. [facility] Narrative Medical decision making narrative: EKG sinus rhythm, right bundle-branch block, no acute ST changes appreciated patient does not have prior for comparison. Labs, labs show white count of 4.8 hemoglobin of 14 platelets of 175, PTT and INR appropriate chloride 108 electrolytes are otherwise appropriate BUN and creatinine are appropriate, glucose is 109 LFTs are normal CK is 52 troponins less than 0.012 with a BNP of 30. Head CT, no acute intracranial pathology CT head and neck angio, no significant intracranial arterial abnormality no significant immediately seen with the arteries of the neck. 79-year-old male who presents with complaint of vertigo that has actually improved, he notes he has been hypertensive he is hypertensive initially on arrival he has been taking his daily medications. His NIH is 1 secondary to a chronic persistent facial droop he otherwise has not no acute neurologic findings on exam. Patient is not a candidate for tPA and my suspicion for stroke is lower. Discussed findings with the patient. Patient's blood pressure still little bit elevated would have him continue to monitor over the next day continued to be elevated shot with the primary care to adjust his medications or return to the emergency department if he is having any other new symptoms. Discharge Plan Departure Patient Disposition: Home Clinical Impression: Vertigo Instructions: DI for Vertigo Activity Restrictions/Additional Instructions: Please follow up with your physician for follow up. Please continue to monitor your blood pressure if it stayed persistently elevated talk with your physician about adjusting your medication. If you develop new or recurrent symptoms of vertigo, severe headaches, new chest pain or shortness of breath, any new numbness, tingling or weakness, any difficulty with speech or movement or other new or concerning changes return to the emergency department. Prescriptions: No Action aspirin 81 mg tablet,delayed release (DR/EC) 81 mg PO QPM Qty: 0 lovastatin 40 mg tablet 40 mg PO QPM Qty: 90 3RF losartan 100 mg tablet 100 mg PO DAILY Qty: 90 3RF tamsulosin 0.4 mg capsule 0.4 mg PO DAILY Qty: 90 3RF fluticasone propionate 50 mcg/actuation spray,suspension 1 spray intranasal BID 90 Days Qty: 16 3RF Rx Instructions: administer into each nostril; please send 90-day supply triamcinolone acetonide 0.5 % cream 1 applictn TOP DAILY Qty: 15 2RF cholecalciferol (vitamin D3) [Vitamin D3] 25 mcg (1,000 unit) Tablet 25 mcg PO DAILY Glucos Chond Cplx Advanced 750 mg-100 mg- 125 mg-1.65 mg Tablet 1 tab PO DAILY Referrals: Andi Morgan MD [Primary Care Provider, Family Practice] Stand Alone Forms: Patient Portal/API
[2025-03-25 12:11] VITALS: BP 180/93; PULSE 60; RESP 16; O2SAT 99
== END 2025-03-25 13:36 | disposition home or self-care (01) ==
PROVIDERS: Emergency Provider Emergency Medicine; PCP Family Medicine
DX: R42 Dizziness and giddiness (principal); I10 Essential (primary) hypertension; I45.10 Unspecified right bundle-branch block; R51.9 Headache, unspecified; R29.810 Facial weakness
CPT/HCPCS: 36415; 70450; 70496; 70498; 71045; 80053; 82550; 83690; 83735; 83880; 84484; 85025; 85610; 85730; 93005; 99283; 99284; Q9967